=== PATIENT | male | born 1975 | race Caucasian/White ===

== ENCOUNTER → 2020-06-10 | Outpatient (CLI) | payer BC ==
--- NOTE | 2020-06-11 10:10 | Diagnostic Imaging Report ---
Indication: Cough Technique: 2 views of the chest Comparison: None Findings: Lungs and pleural spaces are clear. The heart size is normal. The bones are unremarkable. No significant interim change. Impression: Negative
== END | disposition home or self-care (01) ==
LOC: RAD 17:32
DX: Z01.818 Encounter for other preprocedural examination (principal); R05 Cough
CPT/HCPCS: 71046